=== PATIENT | female | born 1930 | race Caucasian/White ===

== ENCOUNTER 2017-05-15 05:18 | Emergency (ER) | payer MEDICARE ==
[~2017-05-15] VITALS: Ht 162.6 cm; Wt 102.7 kg
[~2017-05-15 05:18] MED LIST: /PANT40TA; /WARF25TA; ACET65TA; ALLO10TA PO; ALTA10CA; AMILORIDE; ASPI1TAB PO; ASPI325T PO; ASPI81TA83; CALC1CAP31 PO; CALCCHW12; CLOP75TA2 PO; COLA100C2; FERR325T; FURO40TA2 PO; GABA-282 PO; GLUC500T; HUMA75VL; INSUDET SC; INSUHUMDS SC; LIPI20TA; METO1TAB32 PO; METO25TAB PO; NEUR300C; NITR4TASL SL; PERC5TAB8; PRAV20TA2 PO; RANI150T PO; SENN8.6T5; SPIR25TA2 PO; TRIC145T19; TYLENOL PM; VALS80CA; VITA100066 PO; [UNRECOGNIZED DRUG - REMARK]
[2017-05-15 07:16] LABS: BASO % 0.4 % (0.0-1.0); EOS # 0.1 10^3/uL (0.0-0.50); EOS % 1.3 % (0.0-3.0); IMMATURE GRANULOCYTE % 0.3 % (0-0); LYMPH # 2.6 10^3/uL (1.5-4.5); LYMPH % 29.1 % (24.0-44.0); MEAN CORPUSCULAR HEMOGLOBIN 33.4 pg (27.0-33.0); MEAN CORPUSCULAR HGB CONC 33.9 g/dl (32.0-36.5); MEAN CORPUSCULAR VOLUME 98.6 fl (80.0-96.0); MONO # 0.5 10^3/uL (0.0-0.8); MONO % 5.2 % (0.0-5.0); NEUTROPHILS # 5.7 10^3/uL (1.8-7.7); NEUTROPHILS % 63.7 % (36.0-66.0); PLATELET COUNT, AUTOMATED 171 10^3/uL (150-450); RED CELL DISTRIBUTION WIDTH 15.1 % (11.5-14.5); VENOUS BASE EXCESS -1.9 (-2.0-2.0); VENOUS O2 SATURATION 79.4 % (60.0-80.0); VENOUS PARTIAL PRESSURE CO2 33.7 mmHg (38.0-50.0); VENOUS PARTIAL PRESSURE O2 43.7 mmHg (30.0-50.0); VENOUS STANDARD HCO3 22.5 MEQ/L; VENOUS TOTAL CO2 22.7 MEQ/L (24.0-28.0)
[2017-05-15 07:37] LABS: CALCIUM LEVEL 8.9 MG/DL (8.8-10.2); CREATININE FOR GFR 1.62 MG/DL (0.55-1.02); POTASSIUM SERUM 4.1 MEQ/L (3.5-5.1)
--- NOTE | 2017-05-15 08:08 | REP ---
Portable chest, 06:27 a.m., 05/15/2017: Compared to 04/13/2016. There is mild chronic interstitial coarsening compatible with chronic interstitial lung disease, unchanged. Cardiac size is enlarged, unchanged. No focal infiltrates are identified. No masses. The kan, mediastinum, bony thorax are unchanged. The patient is slightly rotated. Impression: Chronic mild interstitial coarsening compatible with chronic interstitial lung disease. Chronic cardiomegaly. No acute cardiopulmonary findings. Signed by Reji Erwin MD 05/15/2017 07:58 A
[2017-05-15] MEDS ORDERED: FUROSEMIDE 100 MG/10 ML VIAL (J1940) IV ONE (09:30)
[2017-05-15 09:49] VITALS: BP 116/53
--- NOTE | 2017-05-17 07:15 | ECGEPIP ---
Stationary ECG Study [facility] - ED Test Date: 2017-05-15 Pat Name: AGUILAR MENDIOLA Department: Room: - Gender: F Otologist: : [id number] Requested By: NOEL Sánchez Order Number: [id number] Reading MD: Melissa Chow Measurements Intervals Tracy Rate: 94 P: 7 MS: 149 QRS: -11 QRSD: 88 T: 90 QT: 354 QTc: 444 Interpretive Statements SINUS RHYTHM - BASELINE ARTIFACT LIMITS INTEPRETATION POSSIBLE RIGHT VENTRICULAR CONDUCTION DELAY POSSIBLE LEFT VENTRICULAR HYPERTROPHY POSSIBLE ANTERIOR MYOCARDIAL INFARCTION, PROBABLY OLD MODERATE T-WAVE ABNORMALITY, CONSIDER ISCHEMIA Electronically Signed On 05-17-2017 7:15:30 EDT by Melissa Chow
== END 2017-05-15 09:57 | disposition home or self-care (01) ==
LOC: M ED 05:18
DX: R06.02 Shortness of breath (principal); I50.9 Heart failure, unspecified
CPT/HCPCS: 36415; 71010; 80048; 82550; 82553; 82803; 83880; 84484; 85025; 87040; 87804; 93005; 93041; 94760; 96374; 99285; J1940

== ENCOUNTER → 2017-05-21 | Outpatient (CLI) | payer MEDICARE ==
--- NOTE | 2017-05-21 11:11 | REP ---
CHEST, TWO VIEWS: HISTORY: COPD. COMPARISON: 04/13/2016. A diffuse increase in interstitial markings is present in the lungs. The cardiac silhouette is enlarged. Small bilateral pleural effusions are present. The pulmonary vasculature is prominent. Degenerative change is present in the spine. IMPRESSION: 1. COPD. 2. Findings consistent with congestive heart failure. Signed by Tod Salgado MD 05/21/2017 11:14 A
== END ==
LOC: M LRY 10:03
PROVIDERS: ATTEND Physician Assistant
DX: I50.32 Chronic diastolic (congestive) heart failure (principal); J44.9 Chronic obstructive pulmonary disease, unspecified; E83.42 Hypomagnesemia

== ENCOUNTER → 2017-05-21 | Outpatient (CLI) | payer MEDICARE ==
[2017-05-21 12:11] LABS: CALCIUM LEVEL 9.2 MG/DL (8.8-10.2); CREATININE FOR GFR 1.45 MG/DL (0.55-1.02); GLOMERULAR FILTRATION RATE 36.4 (>32); MAGNESIUM LEVEL 2.3 MG/DL (1.8-2.4); PHOSPHORUS LEVEL 3.2 MG/DL (2.5-4.9); POTASSIUM SERUM 4.2 MEQ/L (3.5-5.1)
== END ==
LOC: M LRY 09:17
PROVIDERS: ATTEND Physician Assistant
DX: I50.32 Chronic diastolic (congestive) heart failure (principal); E83.42 Hypomagnesemia

== ENCOUNTER 2017-08-23 11:01 | Inpatient (IN) | payer MEDICARE ==
[2017-08-23 12:15] LABS: VENOUS BASE EXCESS 3.7 (-2.0-2.0); VENOUS HCO3 30.6 MEQ/L (23.0-27.0); VENOUS O2 SATURATION 38.1 % (60.0-80.0); VENOUS PARTIAL PRESSURE CO2 55.4 mmHg (38.0-50.0); VENOUS STANDARD HCO3 26.3 MEQ/L; VENOUS TOTAL CO2 32.3 MEQ/L (24.0-28.0)
[2017-08-23 12:18] LABS: BASO % 0.2 % (0.0-1.0); EOS # 0.1 10^3/uL (0.0-0.50); EOS % 0.6 % (0.0-3.0); HEMATOCRIT 43.1 % (36.0-47.0); HEMOGLOBIN 13.7 g/dl (12.0-16.0); IMMATURE GRANULOCYTE # 0.1 10^3/uL (0-0); IMMATURE GRANULOCYTE % 0.3 % (0-0); LYMPH # 1.8 10^3/uL (1.5-4.5); LYMPH % 11.4 % (24.0-44.0); MEAN CORPUSCULAR HGB CONC 31.8 g/dl (32.0-36.5); MEAN CORPUSCULAR VOLUME 94.3 fl (80.0-96.0); MONO # 0.8 10^3/uL (0.0-0.8); MONO % 4.9 % (0.0-5.0); NEUTROPHILS # 13.4 10^3/uL (1.8-7.7); NEUTROPHILS % 82.6 % (36.0-66.0); PLATELET COUNT, AUTOMATED 218 10^3/uL (150-450); RED BLOOD COUNT 4.57 10^6/uL (4.00-5.40); RED CELL DISTRIBUTION WIDTH 15.8 % (11.5-14.5); WHITE BLOOD COUNT 16.2 10^3/uL (4.0-10.0)
[2017-08-23 12:51] LABS: INR 1.06
[2017-08-23 13:03] LABS: ALBUMIN 3.5 GM/DL (3.2-5.2); ALKALINE PHOSPHATASE 149 U/L (45-117); ALT/SGPT 15 U/L (12-78); ANION GAP 7 MEQ/L (8-16); AST/SGOT 17 U/L (7-37); BILIRUBIN,DIRECT 0.2 MG/DL (0.0-0.2); BILIRUBIN,TOTAL 0.9 MG/DL (0.2-1.0); BLOOD UREA NITROGEN 40 MG/DL (7-18); CALCIUM LEVEL 9.2 MG/DL (8.8-10.2); CARBON DIOXIDE LEVEL 30 MEQ/L (21-32); CHLORIDE LEVEL 101 MEQ/L (98-107); CPK CREATINE PHOSPHOKINASE 42 U/L (26-192); CREATININE FOR GFR 1.68 MG/DL (0.55-1.30); GLOMERULAR FILTRATION RATE 30.7 (>32); GLUCOSE, FASTING 143 MG/DL (70-100); POTASSIUM SERUM 4.5 MEQ/L (3.5-5.1); SODIUM LEVEL 138 MEQ/L (136-145); TOTAL PROTEIN 7.4 GM/DL (6.4-8.2); TROPONIN I 0.02 NG/ML (< 0.10)
[2017-08-23 13:08] LABS: CK-MB VALUE MASS 1.8 NG/ML (0.0-3.6); MB/CK RELATIVE INDEX 4.28 (< OR =4); NT-PRO BNP 5130 PG/ML (<450)
[2017-08-23 13:16] LABS: LACTIC ACID SEPSIS PROTOCOL 2.4 MMOL/L (0.4-2.0)
[2017-08-23] MEDS: FUROSEMIDE 40 MG/4 ML VIAL (J1940) IV (13:45)
[2017-08-23] MEDS ORDERED: GLUCAGON FOR INJ 1 MG VIAL (J1610) SC (15:15)
[2017-08-23] MEDS ORDERED: DEXTROSE 50% 50 ML SYRINGE IV (15:15)
[2017-08-23] MEDS ORDERED: ALBUTEROL SULFATE 2.5 MG/0.5 ML INH NEB SOLN INH (15:15)
[2017-08-23] MEDS ORDERED: GLUCOSE 4 GM CHEW TABLET PO (15:15)
[2017-08-23 17:13] LABS: BEDSIDE GLUCOSE 159 MG/DL (83-110)
[2017-08-23] MEDS: FUROSEMIDE 100 MG/10 ML VIAL (J1940) IV (17:29)
[2017-08-23] MEDS: METOPROLOL TART 12.5 MG PER 1/2 TAB PO (18:00)
[2017-08-23] MEDS: ASPIRIN 81 MG ENTERIC TAB PO (18:02)
[2017-08-23] MEDS: HumaLOG INSULIN (NovoLOG) PER UNIT SC ×2 (18:03→21:00)
[2017-08-23 19:42] LABS: CPK CREATINE PHOSPHOKINASE 42 U/L (26-192)
[2017-08-23 19:43] LABS: CK-MB VALUE MASS 1.2 NG/ML (0.0-3.6); MB/CK RELATIVE INDEX 2.85 (< OR =4)
[2017-08-23 21:04] LABS: BEDSIDE GLUCOSE 229 MG/DL (83-110)
[2017-08-23] MEDS: PRAVASTATIN 20 MG TAB PO (21:34)
[2017-08-23] MEDS: ENOXAPARIN 40 MG/0.4 ML SYRINGE (J1650) SC (21:35)
[2017-08-23] MEDS: LEVEMIR (INSULIN DETEMIR) 1 UNITS/0.01ML SC (21:35)
[2017-08-23] MEDS: ALLOPURINOL 100 MG TAB PO (21:36)
[2017-08-23] MEDS: SLF 3 ML SYR IV (21:38)
[2017-08-23 22:48] LABS: MAGNESIUM LEVEL 2.3 MG/DL (1.8-2.4)
[2017-08-24] MEDS: FUROSEMIDE 100 MG/10 ML VIAL (J1940) IV ×3 (02:00→17:55)
[2017-08-24 04:39] LABS: HEMATOCRIT 36.8 % (36.0-47.0); HEMOGLOBIN 11.9 g/dl (12.0-16.0); MEAN CORPUSCULAR HEMOGLOBIN 29.9 pg (27.0-33.0); MEAN CORPUSCULAR HGB CONC 32.3 g/dl (32.0-36.5); MEAN CORPUSCULAR VOLUME 92.5 fl (80.0-96.0); PLATELET COUNT, AUTOMATED 172 10^3/uL (150-450); RED BLOOD COUNT 3.98 10^6/uL (4.00-5.40); RED CELL DISTRIBUTION WIDTH 15.7 % (11.5-14.5); WHITE BLOOD COUNT 14.1 10^3/uL (4.0-10.0)
[2017-08-24 05:03] LABS: ANION GAP 9 MEQ/L (8-16); BLOOD UREA NITROGEN 44 MG/DL (7-18); CARBON DIOXIDE LEVEL 28 MEQ/L (21-32); CHLORIDE LEVEL 99 MEQ/L (98-107); GLOMERULAR FILTRATION RATE 30.3 (>32); GLUCOSE, FASTING 218 MG/DL (70-100); MAGNESIUM LEVEL 2.3 MG/DL (1.8-2.4); POTASSIUM SERUM 3.8 MEQ/L (3.5-5.1); SODIUM LEVEL 136 MEQ/L (136-145)
[2017-08-24] MEDS: METOPROLOL TART 12.5 MG PER 1/2 TAB PO ×5 (05:54→23:48)
[2017-08-24] MEDS: SLF 3 ML SYR IV ×3 (06:33→21:00)
[2017-08-24] MEDS: ASPIRIN 81 MG ENTERIC TAB PO (09:08)
[2017-08-24] MEDS: CLOPIDOGREL 75 MG TAB PO (09:08)
[2017-08-24] MEDS: ALLOPURINOL 100 MG TAB PO ×2 (09:08→20:58)
[2017-08-24] MEDS: HumaLOG INSULIN (NovoLOG) PER UNIT SC ×4 (09:09→21:05)
[2017-08-24 12:10] LABS: BEDSIDE GLUCOSE 228 MG/DL (83-110)
[2017-08-24 17:32] LABS: BEDSIDE GLUCOSE 233 MG/DL (83-110)
[2017-08-24 20:53] LABS: BEDSIDE GLUCOSE 278 MG/DL (83-110)
[2017-08-24] MEDS: PRAVASTATIN 20 MG TAB PO (20:58)
[2017-08-24] MEDS: ENOXAPARIN 40 MG/0.4 ML SYRINGE (J1650) SC (20:59)
[2017-08-24] MEDS: LEVEMIR (INSULIN DETEMIR) 1 UNITS/0.01ML SC (21:00)
[2017-08-25] MEDS: FUROSEMIDE 100 MG/10 ML VIAL (J1940) IV ×3 (02:13→18:46)
[2017-08-25 04:14] LABS: HEMATOCRIT 37.8 % (36.0-47.0); HEMOGLOBIN 12.2 g/dl (12.0-16.0); MEAN CORPUSCULAR HEMOGLOBIN 30.3 pg (27.0-33.0); MEAN CORPUSCULAR HGB CONC 32.3 g/dl (32.0-36.5); PLATELET COUNT, AUTOMATED 158 10^3/uL (150-450); RED BLOOD COUNT 4.02 10^6/uL (4.00-5.40); RED CELL DISTRIBUTION WIDTH 15.6 % (11.5-14.5)
[2017-08-25 04:34] LABS: ANION GAP 9 MEQ/L (8-16); BLOOD UREA NITROGEN 49 MG/DL (7-18); CARBON DIOXIDE LEVEL 27 MEQ/L (21-32); CHLORIDE LEVEL 98 MEQ/L (98-107); CREATININE FOR GFR 1.63 MG/DL (0.55-1.30); GLOMERULAR FILTRATION RATE 31.8 (>32); GLUCOSE, FASTING 241 MG/DL (70-100); MAGNESIUM LEVEL 2.4 MG/DL (1.8-2.4); POTASSIUM SERUM 3.7 MEQ/L (3.5-5.1); SODIUM LEVEL 134 MEQ/L (136-145)
[2017-08-25] MEDS: SLF 3 ML SYR IV ×3 (05:55→22:32)
[2017-08-25] MEDS: METOPROLOL TART 12.5 MG PER 1/2 TAB PO ×3 (05:55→18:50)
[2017-08-25] MEDS: CLOPIDOGREL 75 MG TAB PO (08:15)
[2017-08-25] MEDS: ALLOPURINOL 100 MG TAB PO ×2 (08:15→22:30)
[2017-08-25] MEDS: HumaLOG INSULIN (NovoLOG) PER UNIT SC ×4 (08:15→21:00)
[2017-08-25] MEDS: ASPIRIN 81 MG ENTERIC TAB PO (08:15)
[2017-08-25 11:36] LABS: BEDSIDE GLUCOSE 292 MG/DL (83-110)
[2017-08-25] MEDS: POTASSIUM CHLORIDE 10 MEQ SR TABLET PO ×2 (11:54→22:29)
[2017-08-25 17:01] LABS: BEDSIDE GLUCOSE 240 MG/DL (83-110)
[2017-08-25 21:18] LABS: BEDSIDE GLUCOSE 226 MG/DL (83-110)
[2017-08-25] MEDS: ENOXAPARIN 40 MG/0.4 ML SYRINGE (J1650) SC (22:29)
[2017-08-25] MEDS: BISACODYL 10 MG SUPP PR (22:30)
[2017-08-25] MEDS: LEVEMIR (INSULIN DETEMIR) 1 UNITS/0.01ML SC (22:31)
[2017-08-25] MEDS: PRAVASTATIN 20 MG TAB PO (22:31)
[2017-08-25] MEDS: MIRALAX *UNIT DOSE* 17GM PACKET PO (22:31)
[2017-08-26] MEDS: ACETAMINOPHEN TAB 650MG DOSE (2X325MG) PO (00:23)
[2017-08-26] MEDS: FUROSEMIDE 100 MG/10 ML VIAL (J1940) IV ×5 (00:26→23:57)
[2017-08-26] MEDS: METOPROLOL TART 12.5 MG PER 1/2 TAB PO ×5 (00:27→23:58)
[2017-08-26 05:12] LABS: HEMATOCRIT 37.5 % (36.0-47.0); HEMOGLOBIN 12.1 g/dl (12.0-16.0); MEAN CORPUSCULAR HEMOGLOBIN 30.5 pg (27.0-33.0); MEAN CORPUSCULAR HGB CONC 32.3 g/dl (32.0-36.5); MEAN CORPUSCULAR VOLUME 94.5 fl (80.0-96.0); PLATELET COUNT, AUTOMATED 165 10^3/uL (150-450); RED BLOOD COUNT 3.97 10^6/uL (4.00-5.40); RED CELL DISTRIBUTION WIDTH 15.6 % (11.5-14.5); WHITE BLOOD COUNT 7.7 10^3/uL (4.0-10.0)
[2017-08-26 05:28] LABS: ANION GAP 7 MEQ/L (8-16); BLOOD UREA NITROGEN 49 MG/DL (7-18); CALCIUM LEVEL 8.6 MG/DL (8.8-10.2); CARBON DIOXIDE LEVEL 28 MEQ/L (21-32); CHLORIDE LEVEL 100 MEQ/L (98-107); CREATININE FOR GFR 1.51 MG/DL (0.55-1.30); GLOMERULAR FILTRATION RATE 34.7 (>32); GLUCOSE, FASTING 223 MG/DL (70-100); MAGNESIUM LEVEL 2.3 MG/DL (1.8-2.4); POTASSIUM SERUM 4.2 MEQ/L (3.5-5.1); SODIUM LEVEL 135 MEQ/L (136-145)
[2017-08-26] MEDS: SLF 3 ML SYR IV ×4 (06:12→23:58)
[2017-08-26] MEDS: HumaLOG INSULIN (NovoLOG) PER UNIT SC ×4 (08:35→20:59)
[2017-08-26] MEDS: CLOPIDOGREL 75 MG TAB PO (08:35)
[2017-08-26] MEDS: ASPIRIN 81 MG ENTERIC TAB PO (08:35)
[2017-08-26] MEDS: MIRALAX *UNIT DOSE* 17GM PACKET PO ×2 (08:36→21:09)
[2017-08-26] MEDS: CALCITRIOL 0.25 MCG CAP (S0169) PO (08:36)
[2017-08-26] MEDS: POTASSIUM CHLORIDE 10 MEQ SR TABLET PO ×2 (08:36→21:08)
[2017-08-26] MEDS: ALLOPURINOL 100 MG TAB PO ×2 (08:40→21:09)
[2017-08-26] MEDS: BISACODYL 10 MG SUPP PR ×2 (09:00→21:10)
[2017-08-26 12:00] LABS: BEDSIDE GLUCOSE 265 MG/DL (83-110)
[2017-08-26] MEDS: ONDANSETRON 4MG/2ML VIAL (J2405) IV (16:34)
[2017-08-26 17:03] LABS: BEDSIDE GLUCOSE 213 MG/DL (83-110)
[2017-08-26] MEDS: LEVEMIR (INSULIN DETEMIR) 1 UNITS/0.01ML SC (21:00)
[2017-08-26 21:05] LABS: BEDSIDE GLUCOSE 248 MG/DL (83-110)
[2017-08-26] MEDS: PRAVASTATIN 20 MG TAB PO (21:08)
[2017-08-26] MEDS: ENOXAPARIN 40 MG/0.4 ML SYRINGE (J1650) SC (21:09)
[2017-08-27 05:19] LABS: HEMATOCRIT 37.8 % (36.0-47.0); MEAN CORPUSCULAR HEMOGLOBIN 30.2 pg (27.0-33.0); MEAN CORPUSCULAR HGB CONC 31.7 g/dl (32.0-36.5); PLATELET COUNT, AUTOMATED 177 10^3/uL (150-450); RED BLOOD COUNT 3.98 10^6/uL (4.00-5.40); RED CELL DISTRIBUTION WIDTH 15.6 % (11.5-14.5); WHITE BLOOD COUNT 7.7 10^3/uL (4.0-10.0)
[2017-08-27 05:42] LABS: ANION GAP 8 MEQ/L (8-16); BLOOD UREA NITROGEN 52 MG/DL (7-18); CARBON DIOXIDE LEVEL 30 MEQ/L (21-32); CHLORIDE LEVEL 100 MEQ/L (98-107); CREATININE FOR GFR 1.47 MG/DL (0.55-1.30); GLOMERULAR FILTRATION RATE 35.8 (>32); GLUCOSE, FASTING 177 MG/DL (70-100); MAGNESIUM LEVEL 2.4 MG/DL (1.8-2.4); POTASSIUM SERUM 4.2 MEQ/L (3.5-5.1); SODIUM LEVEL 138 MEQ/L (136-145)
[2017-08-27] MEDS: FUROSEMIDE 100 MG/10 ML VIAL (J1940) IV ×3 (06:00→18:17)
[2017-08-27] MEDS: METOPROLOL TART 12.5 MG PER 1/2 TAB PO ×3 (06:01→18:18)
[2017-08-27] MEDS: SLF 3 ML SYR IV ×3 (06:01→20:55)
[2017-08-27] MEDS: HumaLOG INSULIN (NovoLOG) PER UNIT SC ×4 (07:35→20:55)
[2017-08-27] MEDS: ASPIRIN 81 MG ENTERIC TAB PO (07:36)
[2017-08-27] MEDS: CLOPIDOGREL 75 MG TAB PO (07:36)
[2017-08-27] MEDS: MIRALAX *UNIT DOSE* 17GM PACKET PO ×2 (07:36→20:53)
[2017-08-27] MEDS: POTASSIUM CHLORIDE 10 MEQ SR TABLET PO ×2 (07:36→20:53)
[2017-08-27] MEDS: ALLOPURINOL 100 MG TAB PO ×2 (07:36→20:53)
[2017-08-27] MEDS: BISACODYL 10 MG SUPP PR ×3 (07:37→20:55)
[2017-08-27 11:16] LABS: BEDSIDE GLUCOSE 206 MG/DL (83-110)
[2017-08-27] MEDS: metOLazone 2.5 MG TAB PO (14:40)
[2017-08-27 17:40] LABS: BEDSIDE GLUCOSE 225 MG/DL (83-110)
[2017-08-27 20:51] LABS: BEDSIDE GLUCOSE 277 MG/DL (83-110)
[2017-08-27] MEDS: PRAVASTATIN 20 MG TAB PO (20:53)
[2017-08-27] MEDS: ENOXAPARIN 40 MG/0.4 ML SYRINGE (J1650) SC (20:54)
[2017-08-27] MEDS: LEVEMIR (INSULIN DETEMIR) 1 UNITS/0.01ML SC (20:54)
[2017-08-28] MEDS: METOPROLOL TART 12.5 MG PER 1/2 TAB PO ×4 (00:04→17:42)
[2017-08-28] MEDS: FUROSEMIDE 100 MG/10 ML VIAL (J1940) IV ×4 (00:05→17:45)
[2017-08-28 05:22] LABS: HEMOGLOBIN 11.8 g/dl (12.0-16.0); MEAN CORPUSCULAR HEMOGLOBIN 29.7 pg (27.0-33.0); MEAN CORPUSCULAR HGB CONC 31.9 g/dl (32.0-36.5); MEAN CORPUSCULAR VOLUME 93.2 fl (80.0-96.0); PLATELET COUNT, AUTOMATED 196 10^3/uL (150-450); RED BLOOD COUNT 3.97 10^6/uL (4.00-5.40); RED CELL DISTRIBUTION WIDTH 15.5 % (11.5-14.5); WHITE BLOOD COUNT 6.8 10^3/uL (4.0-10.0)
[2017-08-28 05:41] LABS: ANION GAP 7 MEQ/L (8-16); BLOOD UREA NITROGEN 53 MG/DL (7-18); CALCIUM LEVEL 8.7 MG/DL (8.8-10.2); CARBON DIOXIDE LEVEL 31 MEQ/L (21-32); CHLORIDE LEVEL 101 MEQ/L (98-107); GLOMERULAR FILTRATION RATE 37.9 (>32); GLUCOSE, FASTING 124 MG/DL (70-100); MAGNESIUM LEVEL 2.4 MG/DL (1.8-2.4); POTASSIUM SERUM 3.7 MEQ/L (3.5-5.1); SODIUM LEVEL 139 MEQ/L (136-145)
[2017-08-28] MEDS: SLF 3 ML SYR IV ×3 (06:05→21:25)
[2017-08-28] MEDS: metOLazone 2.5 MG TAB PO (06:50)
[2017-08-28] MEDS: ASPIRIN 81 MG ENTERIC TAB PO (08:10)
[2017-08-28] MEDS: CLOPIDOGREL 75 MG TAB PO (08:10)
[2017-08-28] MEDS: CALCITRIOL 0.25 MCG CAP (S0169) PO (08:10)
[2017-08-28] MEDS: ALLOPURINOL 100 MG TAB PO ×2 (08:10→21:24)
[2017-08-28] MEDS: HumaLOG INSULIN (NovoLOG) PER UNIT SC ×4 (08:11→21:23)
[2017-08-28] MEDS: POTASSIUM CHLORIDE 10 MEQ SR TABLET PO ×2 (08:11→21:24)
[2017-08-28] MEDS: MIRALAX *UNIT DOSE* 17GM PACKET PO ×2 (08:11→21:23)
[2017-08-28] MEDS: BISACODYL 10 MG SUPP PR ×2 (08:12→21:00)
[2017-08-28 12:26] LABS: BEDSIDE GLUCOSE 173 MG/DL (83-110)
[2017-08-28 17:15] LABS: BEDSIDE GLUCOSE 181 MG/DL (83-110)
[2017-08-28 20:45] LABS: BEDSIDE GLUCOSE 266 MG/DL (83-110)
[2017-08-28] MEDS: LEVEMIR (INSULIN DETEMIR) 1 UNITS/0.01ML SC (21:23)
[2017-08-28] MEDS: PRAVASTATIN 20 MG TAB PO (21:24)
[2017-08-28] MEDS: ENOXAPARIN 40 MG/0.4 ML SYRINGE (J1650) SC (21:24)
[2017-08-29] MEDS: FUROSEMIDE 100 MG/10 ML VIAL (J1940) IV ×4 (00:38→18:25)
[2017-08-29] MEDS: METOPROLOL TART 12.5 MG PER 1/2 TAB PO ×4 (00:38→18:24)
[2017-08-29 05:46] LABS: HEMATOCRIT 38.7 % (36.0-47.0); HEMOGLOBIN 12.4 g/dl (12.0-16.0); MEAN CORPUSCULAR HEMOGLOBIN 29.9 pg (27.0-33.0); MEAN CORPUSCULAR VOLUME 93.3 fl (80.0-96.0); PLATELET COUNT, AUTOMATED 204 10^3/uL (150-450); RED BLOOD COUNT 4.15 10^6/uL (4.00-5.40); RED CELL DISTRIBUTION WIDTH 16.1 % (11.5-14.5); WHITE BLOOD COUNT 5.7 10^3/uL (4.0-10.0)
[2017-08-29] MEDS: SLF 3 ML SYR IV ×3 (06:14→21:10)
[2017-08-29] MEDS: HumaLOG INSULIN (NovoLOG) PER UNIT SC ×4 (07:30→21:08)
[2017-08-29 07:47] LABS: ANION GAP 11 MEQ/L (8-16); BLOOD UREA NITROGEN 56 MG/DL (7-18); CALCIUM LEVEL 9.1 MG/DL (8.8-10.2); CARBON DIOXIDE LEVEL 32 MEQ/L (21-32); CHLORIDE LEVEL 101 MEQ/L (98-107); GLUCOSE, FASTING 78 MG/DL (70-100); MAGNESIUM LEVEL 2.4 MG/DL (1.8-2.4); POTASSIUM SERUM 3.7 MEQ/L (3.5-5.1); SODIUM LEVEL 144 MEQ/L (136-145)
[2017-08-29] MEDS: MIRALAX *UNIT DOSE* 17GM PACKET PO ×2 (09:00→21:00)
[2017-08-29] MEDS: BISACODYL 10 MG SUPP PR ×2 (09:00→21:00)
[2017-08-29] MEDS: POTASSIUM CHLORIDE 10 MEQ SR TABLET PO ×2 (09:07→21:09)
[2017-08-29] MEDS: ALLOPURINOL 100 MG TAB PO ×2 (09:08→21:09)
[2017-08-29] MEDS: CLOPIDOGREL 75 MG TAB PO (09:08)
[2017-08-29] MEDS: ASPIRIN 81 MG ENTERIC TAB PO (09:08)
[2017-08-29 12:09] LABS: BEDSIDE GLUCOSE 152 MG/DL (83-110)
[2017-08-29] MEDS: metOLazone 2.5 MG TAB PO (16:25)
[2017-08-29 17:38] LABS: BEDSIDE GLUCOSE 180 MG/DL (83-110)
[2017-08-29] MEDS: ENOXAPARIN 40 MG/0.4 ML SYRINGE (J1650) SC (21:07)
[2017-08-29] MEDS: LEVEMIR (INSULIN DETEMIR) 1 UNITS/0.01ML SC (21:09)
[2017-08-29] MEDS: PRAVASTATIN 20 MG TAB PO (21:09)
[2017-08-29] MEDS: NYSTATIN 100,000 UNITS/GM TOPICAL PWD 15 GM TOP (21:10)
[2017-08-29 21:14] LABS: BEDSIDE GLUCOSE 251 MG/DL (83-110)
[2017-08-30] MEDS: METOPROLOL TART 12.5 MG PER 1/2 TAB PO ×2 (00:19→05:47)
[2017-08-30] MEDS: FUROSEMIDE 100 MG/10 ML VIAL (J1940) IV ×2 (00:21→05:46)
[2017-08-30] MEDS: ACETAMINOPHEN TAB 650MG DOSE (2X325MG) PO (01:54)
[2017-08-30] MEDS: SLF 3 ML SYR IV (05:47)
[2017-08-30 06:01] LABS: HEMATOCRIT 38.3 % (36.0-47.0); HEMOGLOBIN 12.4 g/dl (12.0-16.0); MEAN CORPUSCULAR HEMOGLOBIN 30.2 pg (27.0-33.0); MEAN CORPUSCULAR HGB CONC 32.4 g/dl (32.0-36.5); MEAN CORPUSCULAR VOLUME 93.2 fl (80.0-96.0); PLATELET COUNT, AUTOMATED 214 10^3/uL (150-450); RED BLOOD COUNT 4.11 10^6/uL (4.00-5.40); RED CELL DISTRIBUTION WIDTH 15.9 % (11.5-14.5); WHITE BLOOD COUNT 6.4 10^3/uL (4.0-10.0)
[2017-08-30 06:18] LABS: ANION GAP 8 MEQ/L (8-16); BLOOD UREA NITROGEN 56 MG/DL (7-18); CALCIUM LEVEL 9.2 MG/DL (8.8-10.2); CARBON DIOXIDE LEVEL 32 MEQ/L (21-32); CHLORIDE LEVEL 99 MEQ/L (98-107); GLOMERULAR FILTRATION RATE 32.5 (>32); GLUCOSE, FASTING 115 MG/DL (70-100); MAGNESIUM LEVEL 2.2 MG/DL (1.8-2.4); POTASSIUM SERUM 3.5 MEQ/L (3.5-5.1); SODIUM LEVEL 139 MEQ/L (136-145)
[2017-08-30] MEDS: HumaLOG INSULIN (NovoLOG) PER UNIT SC ×2 (08:08→12:19)
[2017-08-30] MEDS: ASPIRIN 81 MG ENTERIC TAB PO (08:09)
[2017-08-30] MEDS: POTASSIUM CHLORIDE 10 MEQ SR TABLET PO (08:09)
[2017-08-30] MEDS: CALCITRIOL 0.25 MCG CAP (S0169) PO (08:09)
[2017-08-30] MEDS: CLOPIDOGREL 75 MG TAB PO (08:09)
[2017-08-30] MEDS: ALLOPURINOL 100 MG TAB PO (08:09)
[2017-08-30] MEDS: MIRALAX *UNIT DOSE* 17GM PACKET PO (08:12)
[2017-08-30] MEDS: BISACODYL 10 MG SUPP PR (08:13)
[2017-08-30 12:05] LABS: BEDSIDE GLUCOSE 155 MG/DL (83-110)
== END 2017-08-30 13:30 | disposition home or self-care (01) | DRG 291 ==
LOC: M ED 11:01 → M ED INP 15:11 → M PCU 16:54
DX: I13.0 Hypertensive heart and chronic kidney disease with heart failure and stage 1 through stage 4 chronic kidney disease, or unspecified chronic kidney disease (principal); I50.43 Acute on chronic combined systolic (congestive) and diastolic (congestive) heart failure; Z68.41 Body mass index [BMI] 40.0-44.9, adult; E66.01 Morbid (severe) obesity due to excess calories; E11.9 Type 2 diabetes mellitus without complications; N18.3 Chronic kidney disease, stage 3 (moderate); I83.91 Asymptomatic varicose veins of right lower extremity; J44.9 Chronic obstructive pulmonary disease, unspecified; M10.9 Gout, unspecified; Z96.653 Presence of artificial knee joint, bilateral; Z90.49 Acquired absence of other specified parts of digestive tract; Z95.9 Presence of cardiac and vascular implant and graft, unspecified; Z98.41 Cataract extraction status, right eye; Z98.42 Cataract extraction status, left eye; Z79.4 Long term (current) use of insulin; Z79.82 Long term (current) use of aspirin; Z79.02 Long term (current) use of antithrombotics/antiplatelets

== ENCOUNTER 2017-09-20 10:57 | Inpatient (IN) | payer MEDICARE ==
[2017-09-20] MEDS: FUROSEMIDE 40 MG/4 ML VIAL (J1940) IV ×2 (11:17→16:41)
[2017-09-20] MEDS: ASPIRIN 81 MG CHEW TABLET PO (11:17)
[2017-09-20] MEDS: NITROGLYCERIN 0.3 MG SUBL TAB SL (11:19)
[2017-09-20 11:23] LABS: BASO % 0.3 % (0.0-1.0); EOS # 0.1 10^3/uL (0.0-0.50); EOS % 0.6 % (0.0-3.0); HEMATOCRIT 41.4 % (36.0-47.0); IMMATURE GRANULOCYTE % 0.5 % (0-3.0); LYMPH # 2.2 10^3/uL (1.5-4.5); LYMPH % 24.6 % (24.0-44.0); MEAN CORPUSCULAR HEMOGLOBIN 29.4 pg (27.0-33.0); MEAN CORPUSCULAR HGB CONC 31.4 g/dl (32.0-36.5); MEAN CORPUSCULAR VOLUME 93.7 fl (80.0-96.0); MONO # 0.5 10^3/uL (0.0-0.8); MONO % 5.2 % (0.0-5.0); NEUTROPHILS % 68.8 % (36.0-66.0); PLATELET COUNT, AUTOMATED 193 10^3/uL (150-450); RED BLOOD COUNT 4.42 10^6/uL (4.00-5.40); RED CELL DISTRIBUTION WIDTH 16.1 % (11.5-14.5); WHITE BLOOD COUNT 8.8 10^3/uL (4.0-10.0)
[2017-09-20 11:33] LABS: INR 1.05; PROTHROMBIN TIME 13.8 SECONDS (12.4-14.5)
[2017-09-20 11:53] LABS: ALBUMIN 3.2 GM/DL (3.2-5.2); ALBUMIN/GLOBULIN RATIO 0.74 (1.00-1.93); ALKALINE PHOSPHATASE 138 U/L (45-117); ALT/SGPT 17 U/L (12-78); AST/SGOT 16 U/L (7-37); BILIRUBIN,DIRECT 0.3 MG/DL (0.0-0.2); BILIRUBIN,TOTAL 0.8 MG/DL (0.2-1.0); NT-PRO BNP 7570 PG/ML (<450); TOTAL PROTEIN 7.5 GM/DL (6.4-8.2)
[2017-09-20 11:55] LABS: ANION GAP 9 MEQ/L (8-16); BLOOD UREA NITROGEN 54 MG/DL (7-18); CALCIUM LEVEL 8.6 MG/DL (8.8-10.2); CARBON DIOXIDE LEVEL 27 MEQ/L (21-32); CHLORIDE LEVEL 101 MEQ/L (98-107); CK-MB VALUE MASS 2.4 NG/ML (0.0-3.6); CPK CREATINE PHOSPHOKINASE 40 U/L (26-192); CREATININE FOR GFR 2.12 MG/DL (0.55-1.30); GLOMERULAR FILTRATION RATE 23.5 (>32); GLUCOSE, FASTING 280 MG/DL (70-100); POTASSIUM SERUM 4.4 MEQ/L (3.5-5.1); SODIUM LEVEL 137 MEQ/L (136-145); TROPONIN I 0.03 NG/ML (< 0.10)
[2017-09-20 11:57] LABS: LACTIC ACID SEPSIS PROTOCOL 2.8 MMOL/L (0.4-2.0)
[2017-09-20 12:02] LABS: INFLUENZA A AMPLIFICATION NEGATIVE (NEGATIVE); INFLUENZA B AMPLIFICATION NEGATIVE (NEGATIVE)
[2017-09-20] MEDS ORDERED: NITROGLYCERIN 0.4 MG SUBL TABLET SL (14:15)
[2017-09-20] MEDS ORDERED: GLUCAGON FOR INJ 1 MG VIAL (J1610) SC (15:15)
[2017-09-20] MEDS ORDERED: GLUCOSE 4 GM CHEW TABLET PO (15:15)
[2017-09-20] MEDS ORDERED: DEXTROSE 50% 50 ML SYRINGE IV (15:15)
[2017-09-20] MEDS: HumaLOG INSULIN (NovoLOG) PER UNIT SC ×2 (17:49→21:11)
[2017-09-20 17:56] LABS: BEDSIDE GLUCOSE 241 MG/DL (83-110)
[2017-09-20] MEDS: PRAVASTATIN 20 MG TAB PO (21:10)
[2017-09-20] MEDS: ALLOPURINOL 100 MG TAB PO (21:10)
[2017-09-20] MEDS: CALCIUM/VITAMIN D 500 MG TAB PO (21:10)
[2017-09-20 21:21] LABS: BEDSIDE GLUCOSE 254 MG/DL (83-110)
[2017-09-21] MEDS: LEVALBUTEROL 1.25 MG/0.5 ML CONCENTRATE NEB NEB (01:53)
[2017-09-21 05:36] LABS: HEMATOCRIT 37.7 % (36.0-47.0); HEMOGLOBIN 11.8 g/dl (12.0-16.0); MEAN CORPUSCULAR HEMOGLOBIN 29.4 pg (27.0-33.0); MEAN CORPUSCULAR HGB CONC 31.3 g/dl (32.0-36.5); PLATELET COUNT, AUTOMATED 174 10^3/uL (150-450); RED BLOOD COUNT 4.01 10^6/uL (4.00-5.40); RED CELL DISTRIBUTION WIDTH 15.9 % (11.5-14.5); WHITE BLOOD COUNT 8.7 10^3/uL (4.0-10.0)
[2017-09-21 05:53] LABS: ALBUMIN 3.1 GM/DL (3.2-5.2); ANION GAP 9 MEQ/L (8-16); BLOOD UREA NITROGEN 56 MG/DL (7-18); CALCIUM LEVEL 8.9 MG/DL (8.8-10.2); CARBON DIOXIDE LEVEL 26 MEQ/L (21-32); CHLORIDE LEVEL 103 MEQ/L (98-107); CREATININE FOR GFR 1.87 MG/DL (0.55-1.30); GLOMERULAR FILTRATION RATE 27.1 (>32); GLUCOSE, FASTING 257 MG/DL (70-100); PHOSPHORUS LEVEL 4.5 MG/DL (2.5-4.9); POTASSIUM SERUM 4.2 MEQ/L (3.5-5.1); SODIUM LEVEL 138 MEQ/L (136-145)
[2017-09-21] MEDS: HumaLOG INSULIN (NovoLOG) PER UNIT SC ×4 (08:47→21:00)
[2017-09-21] MEDS: FUROSEMIDE 40 MG/4 ML VIAL (J1940) IV ×2 (08:48→17:22)
[2017-09-21] MEDS: CLOPIDOGREL 75 MG TAB PO (08:48)
[2017-09-21] MEDS: ASPIRIN 81 MG ENTERIC TAB PO (08:48)
[2017-09-21] MEDS: ALLOPURINOL 100 MG TAB PO ×2 (08:48→21:40)
[2017-09-21] MEDS: METOPROLOL SUCC (TopROL XL) 50MG **XL** TAB PO (08:48)
[2017-09-21] MEDS ORDERED: LEVALBUTEROL 1.25 MG/0.5 ML CONCENTRATE NEB INH (09:15)
[2017-09-21] MEDS: PANTOPRAZOLE 40MG TAB (PROTONIX) PO (12:02)
[2017-09-21 12:05] LABS: BEDSIDE GLUCOSE 274 MG/DL (83-110)
[2017-09-21] MEDS: CALCIUM/VITAMIN D 500 MG TAB PO (21:40)
[2017-09-21] MEDS: PRAVASTATIN 20 MG TAB PO (21:40)
[2017-09-22 06:13] LABS: HEMATOCRIT 37.1 % (36.0-47.0); HEMOGLOBIN 11.5 g/dl (12.0-16.0); MEAN CORPUSCULAR VOLUME 93.5 fl (80.0-96.0); PLATELET COUNT, AUTOMATED 156 10^3/uL (150-450); RED BLOOD COUNT 3.97 10^6/uL (4.00-5.40); RED CELL DISTRIBUTION WIDTH 15.9 % (11.5-14.5); WHITE BLOOD COUNT 7.8 10^3/uL (4.0-10.0)
[2017-09-22 06:36] LABS: ALBUMIN 2.9 GM/DL (3.2-5.2); ANION GAP 10 MEQ/L (8-16); BLOOD UREA NITROGEN 57 MG/DL (7-18); CALCIUM LEVEL 8.9 MG/DL (8.8-10.2); CARBON DIOXIDE LEVEL 28 MEQ/L (21-32); CHLORIDE LEVEL 100 MEQ/L (98-107); CREATININE FOR GFR 1.68 MG/DL (0.55-1.30); GLOMERULAR FILTRATION RATE 30.7 (>32); GLUCOSE, FASTING 229 MG/DL (70-100); PHOSPHORUS LEVEL 3.7 MG/DL (2.5-4.9); SODIUM LEVEL 138 MEQ/L (136-145)
[2017-09-22 07:09] LABS: BEDSIDE GLUCOSE 181 MG/DL (83-110)
[2017-09-22] MEDS ORDERED: PANTOPRAZOLE 40MG TAB (PROTONIX) PO (09:00)
[2017-09-22] MEDS: HumaLOG INSULIN (NovoLOG) PER UNIT SC (09:07)
[2017-09-22] MEDS: ALLOPURINOL 100 MG TAB PO (09:07)
[2017-09-22] MEDS: ASPIRIN 81 MG ENTERIC TAB PO (09:07)
[2017-09-22] MEDS: FUROSEMIDE 40 MG/4 ML VIAL (J1940) IV (09:07)
[2017-09-22] MEDS: METOPROLOL SUCC (TopROL XL) 50MG **XL** TAB PO (09:08)
[2017-09-22] MEDS: PANTOPRAZOLE 40MG TAB (PROTONIX) PO (09:08)
[2017-09-22] MEDS: CLOPIDOGREL 75 MG TAB PO (09:08)
[2017-09-22] MEDS ORDERED: ACETAMINOPHEN TAB 650MG DOSE (2X325MG) PO (12:30)
[2017-09-22] MEDS ORDERED: ACETAMINOPHEN 650 MG SUPP PR (12:30)
[2017-09-22] MEDS: LORazepam 1 MG TAB PO ×2 (12:57→14:52)
[2017-09-22] MEDS: MORPHINE 10MG/0.5ML ORAL CONCENTRATE SOLUTION U/D SL ×2 (15:55→19:00)
[2017-09-22] MEDS ORDERED: FUROSEMIDE 100 MG/10 ML VIAL (J1940) IV (17:00)
[2017-09-22] MEDS ORDERED: LEVEMIR (INSULIN DETEMIR) 1 UNITS/0.01ML SC (21:00)
[2017-09-23] MEDS: MORPHINE 10MG/0.5ML ORAL CONCENTRATE SOLUTION U/D SL ×6 (13:46→23:11)
[2017-09-23] MEDS: HYOSCYAMINE SULFATE 0.125 MG SUBL TABLET PO (18:28)
[2017-09-23] MEDS: OLANZapine INTRAMUSCULAR 10 MG VIAL (S0166) IM (18:57)
[2017-09-24] MEDS: MORPHINE 10MG/0.5ML ORAL CONCENTRATE SOLUTION U/D SL (01:59)
== END 2017-09-24 02:25 | disposition expired | DRG 189 ==
LOC: M MS4PR 09-23 01:47 → M ED 10:57 → M ED INP 16:35 → M PCU 19:45
DX: J96.01 Acute respiratory failure with hypoxia (principal); I50.43 Acute on chronic combined systolic (congestive) and diastolic (congestive) heart failure; I13.0 Hypertensive heart and chronic kidney disease with heart failure and stage 1 through stage 4 chronic kidney disease, or unspecified chronic kidney disease; N17.9 Acute kidney failure, unspecified; E87.2 Acidosis; N18.4 Chronic kidney disease, stage 4 (severe); Z51.5 Encounter for palliative care; E11.9 Type 2 diabetes mellitus without complications; D63.1 Anemia in chronic kidney disease; E78.5 Hyperlipidemia, unspecified; M1A.30X0 Chronic gout due to renal impairment, unspecified site, without tophus (tophi); I25.10 Atherosclerotic heart disease of native coronary artery without angina pectoris; J44.9 Chronic obstructive pulmonary disease, unspecified; Z79.82 Long term (current) use of aspirin; Z79.4 Long term (current) use of insulin; Z96.653 Presence of artificial knee joint, bilateral; Z90.49 Acquired absence of other specified parts of digestive tract; Z98.41 Cataract extraction status, right eye; Z98.42 Cataract extraction status, left eye; Z95.9 Presence of cardiac and vascular implant and graft, unspecified